=== PATIENT | female | born 1960 | race American Indian/Alaskan Native ===

== ENCOUNTER 2017-07-01 09:59 | Emergency (ER) | payer MEDICAID, OTHER ==
[2017-07-01 10:25] VITALS: BP 126/62
[2017-07-01 11:07] LABS: Basophils % (Auto) 0.9 % (0.0-1.8); Eosinophils % (Auto) 2.5 % (0.0-4.3); Hematocrit 43.6 % (30.3-42.9); Hemoglobin 14.7 gm/dl (10.1-14.3); Mean Corpuscular HGB Conc 34 % (30-34); Mean Corpuscular Hemoglobin 31 pg (28-32); Mean Corpuscular Volume 93 fl (79-97); Platelet Count 175 K/mm3 (140-440); Red Blood Count 4.71 M/mm3 (3.65-5.03); Red Cell Distribution Width 13.4 % (13.2-15.2); White Blood Count 4.2 K/mm3 (4.5-11.0)
--- NOTE | 2017-07-01 11:17 | XRay Report ---
CHEST TWO VIEWS: 07/01/17 09:59:00 CLINICAL: Chest pain and cough. COMPARISON: None FINDINGS: Normal heart and pulmonary vasculature. The lungs are normally expanded and clear.Scoliosis. Old healed fractures of the right humerus and the right posterior ninth rib at the costovertebral junction. IMPRESSION: No acute cardiopulmonary process.
[2017-07-01 11:19] LABS: BUN/Creatinine Ratio 37; Blood Urea Nitrogen 11 mg/dL (7-17); Calcium 9.5 mg/dL (8.4-10.2); Carbon Dioxide 22 mmol/L (22-30); Chloride 104.1 mmol/L (98-107); Glucose 107 mg/dL (65-100); Sodium 140 mmol/L (137-145)
--- NOTE | 2017-07-01 11:39 | Emergency Department Report ---
- General Chief Complaint: Upper Respiratory Infection Stated Complaint: BLEEDING EAR/CHEST PAIN Time Seen by Provider: 07/01/17 11:25 Source: patient Mode of arrival: Ambulatory Limitations: No Limitations - History of Present Illness Initial Comments: Patient is 56 years old female history of rickets, presented to the ER with a chief complaint of left ear bleeding after she sat using Q-tips for left ear pain, patient is also complaining of sore throat cough and congestion for the last 3 days. Patient denied any fever, nausea or vomiting. MD Complaint: cough, sore throat, rhinorrhea, nasal congestion -: Gradual Severity: moderate - Related Data Previous Rx's Medication Instructions Recorded Last Taken Type Acetaminophen/Codeine 1 tab PO Q6H PRN #10 tab 10/07/14 Unknown Rx [Acetaminophen-Codeine #3 TAB] Cyclobenzaprine [Flexeril 10mg] 10 mg PO TID PRN #14 tablet 10/07/14 Unknown Rx Ibuprofen [Motrin] 600 mg PO Q8H PRN #20 tablet 10/07/14 Unknown Rx traMADol [Ultram] 50 mg PO Q6HR PRN #14 tablet 03/11/16 Unknown Rx Amoxicillin [Amoxicillin TAB] 875 mg PO BID #14 tablet 07/01/17 Unknown Rx guaiFENesin/CODEINE [Robitussin AC] 10 ml PO TID PRN #100 ml 07/01/17 Unknown Rx Allergies Allergy/AdvReac Type Severity Reaction Status Date / Time No Known Allergies Allergy Verified 07/01/17 10:16 ED Review of Systems ROS: Stated complaint: BLEEDING EAR/CHEST PAIN Other details as noted in HPI Comment: All other systems reviewed and negative Constitutional: denies: chills, fever ENT: throat pain, congestion Respiratory: cough. denies: shortness of breath, SOB with exertion Cardiovascular: denies: chest pain Gastrointestinal: denies: abdominal pain, nausea, vomiting, diarrhea, constipation, hematemesis Neurological: denies: headache, weakness, numbness, paresthesias, confusion, abnormal gait ED Past Medical Hx - Past Medical History Additional medical history: rickets, mvp, ulcers - Surgical History Additional Surgical History: left leg surgery, biopsy to check for uterine cancer - Social History Smoking Status: Former Smoker Substance Use Type: None - Medications Home Medications: Home Medications Medication Instructions Recorded Confirmed Last Taken Type Acetaminophen/Codeine 1 tab PO Q6H PRN #10 tab 10/07/14 Unknown Rx [Acetaminophen-Codeine #3 TAB] Cyclobenzaprine [Flexeril 10mg] 10 mg PO TID PRN #14 tablet 10/07/14 Unknown Rx Ibuprofen [Motrin] 600 mg PO Q8H PRN #20 tablet 10/07/14 Unknown Rx traMADol [Ultram] 50 mg PO Q6HR PRN #14 tablet 03/11/16 Unknown Rx Amoxicillin [Amoxicillin TAB] 875 mg PO BID #14 tablet 07/01/17 Unknown Rx guaiFENesin/CODEINE [Robitussin AC] 10 ml PO TID PRN #100 ml 07/01/17 Unknown Rx ED Physical Exam - General Limitations: No Limitations General appearance: alert, in no apparent distress - Head Head exam: Present: atraumatic, normocephalic, normal inspection - Eye Eye exam: Present: normal appearance, PERRL - ENT ENT exam: Present: mucous membranes moist, other (left external ear canal with dried blood and no active bleeding) - Neck Neck exam: Present: normal inspection - Respiratory Respiratory exam: Present: normal lung sounds bilaterally. Absent: respiratory distress, wheezes, rales, rhonchi, accessory muscle use, decreased breath sounds , prolonged expiratory - Cardiovascular Cardiovascular Exam: Present: regular rate, normal rhythm, normal heart sounds - GI/Abdominal GI/Abdominal exam: Present: soft, normal bowel sounds. Absent: tenderness, guarding, rebound, rigid, organomegaly, mass, bruit, pulsatile mass, hernia - Extremities Exam Extremities exam: Present: normal inspection, full ROM - Neurological Exam Neurological exam: Present: alert, oriented X3, CN II-XII intact, normal gait - Skin Skin exam: Present: warm, intact, normal color ED Course Vital Signs 07/01/17 10:16 Temperature 98.5 F Pulse Rate 73 Respiratory 18 Rate Blood Pressure 126/62 Blood Pressure 126/62 [Right] O2 Sat by Pulse 99 Oximetry ED Medical Decision Making - Lab Data Result diagrams: 07/01/17 10:35 07/01/17 10:35 - Radiology Data Radiology results: report reviewed Referring Physician: ED DOC Patient Name: ERNA OVALLES Date of : 1960 Sex: Female Report Date: 2017-07-01 Report Status: Finalized Findings [facility] [address] [place] [address] XRay Report Signed Patient: ERNA OVALLES MR#: [id number] : 1960 Acct:[id number] Age/Sex: 56 / F ADM Date: 07/01/17 Loc: ED Attending Dr: Ordering Physician: MODE VALIENTE MD Date of Service: 07/01/17 Procedure(s): XR chest routine 2V Accession Number(s): [id number] cc: ED MD STEFFANIE Fluoro Time In Minutes: CHEST TWO VIEWS: 07/01/17 09:59:00 CLINICAL: Chest pain and cough. COMPARISON: None FINDINGS: Normal heart and pulmonary vasculature. The lungs are normally expanded and clear.Scoliosis. Old healed fractures of the right humerus and the right posterior ninth rib at the costovertebral junction. IMPRESSION: No acute cardiopulmonary process. Transcribed By: REF Dictated By: ROXANNA MOURA MD Electronically Authenticated By: ROXANNA MOURA MD Signed Date/Time: 07/01/171111 DD/ 111 TD/TT: 07/01/171111 Critical care attestation.: If time is entered above; I have spent that time in minutes in the direct care of this critically ill patient, excluding procedure time. ED Disposition Clinical Impression: Acute bronchitis, Left otitis media Disposition: DC-01 TO HOME OR SELFCARE Is pt being admited?: No Condition: Stable Instructions: Acute Bronchitis (ED) Prescriptions: Amoxicillin [Amoxicillin TAB] 875 mg PO BID #14 tablet guaiFENesin/CODEINE [Robitussin AC] 10 ml PO TID PRN #100 ml PRN Reason: Cough Referrals: PRIMARY CARE, [Primary Care Provider] - 3-5 Days
[2017-07-01 11:56] LABS: Anion Gap 18 mmol/L
[2017-07-01 11:57] LABS: Potassium 4.3 mmol/L (3.6-5.0)
== END 2017-07-01 11:46 | disposition home or self-care (01) ==
LOC: ED 09:59
DX: J20.9 Acute bronchitis, unspecified (principal); H66.92 Otitis media, unspecified, left ear; Z87.891 Personal history of nicotine dependence
CPT/HCPCS: 36415; 71020; 80048; 84484; 85025; 87400; 93005; 93010

== ENCOUNTER 2020-03-10 15:46 | Emergency (ER) | payer MEDICAID ==
[2020-03-10 16:34] VITALS: BP 203/81
== END 2020-03-10 19:55 | disposition left against medical advice (07) ==
LOC: ED 15:46
DX: I10 Essential (primary) hypertension (principal); Z53.21 Procedure and treatment not carried out due to patient leaving prior to being seen by health care provider